=== PATIENT | male | born 1950 | race Two or more races ===

== ENCOUNTER 2018-10-23 16:46 | Emergency (ER) | payer OTHER ==
[~2018-10-23] VITALS: Ht 177.8 cm; Wt 86.2 kg
[2018-10-23] MEDS ORDERED: ATORVASTATIN CA40 MG (17:00)
[2018-10-23] MEDS ORDERED: VERAPAMIL ER240 MG (17:00)
== END 2018-10-23 19:06 | disposition home or self-care (01) ==
LOC: ER 16:46
DX: R55 Syncope and collapse (principal); E11.649 Type 2 diabetes mellitus with hypoglycemia without coma